=== PATIENT | female | born 1995 | race Native Hawaiian/Other Pacific Islander ===

== ENCOUNTER 2017-05-04 15:45 | Outpatient (CLI) | payer BC | END 2017-05-04 20:17 | disposition home or self-care (01) | LOC: RAD 15:45 | DX: M79.671 Pain in right foot (principal) ==

== ENCOUNTER 2018-12-16 09:05 | Emergency (ER) | payer OTHER ==
[~2018-12-16] VITALS: Ht 157.5 cm; Wt 56.7 kg
[2018-12-16 09:34] LABS: PLATELET COUNT 248 K/uL (152-353)
[2018-12-16 09:49] LABS: POTASSIUM 3.8 mmol/L (3.6-5.2); SODIUM 142 mmol/L (136-145)
[2018-12-16 11:37] LABS: PARTIAL THROMBOPLASTIN TIME 25.1 SECONDS (24.5-33.6)
[2018-12-16 17:30] VITALS: BP 120/65; TEMP 98.2
== END 2018-12-16 17:31 | disposition other institution (70) ==
LOC: ED 09:05
PROVIDERS: Hospitalist
DX: R45.851 Suicidal ideations (principal); N39.0 Urinary tract infection, site not specified; F12.10 Cannabis abuse, uncomplicated; F15.10 Other stimulant abuse, uncomplicated
CPT/HCPCS: 80053; 80307; 80320; 80329; 81000; 81025; 85027; 85610; 85730; 87077; 87086; 87088; 87186; 93005; 96372; 99285; J0696

== ENCOUNTER 2020-03-10 09:39 | Outpatient (CLI) | payer OTHER | END 2020-03-10 19:11 | disposition home or self-care (01) | LOC: LAB 09:39 | PROVIDERS: ATTEND Pediatrics | DX: R05 Cough (principal) ==